=== PATIENT | male | born 1940 | race Caucasian/White ===

== ENCOUNTER → 2018-04-30 | Outpatient (REF) | LOC: M LAB REF 09:50 | DX: Z00.00 Encounter for general adult medical examination without abnormal findings (principal) ==

== ENCOUNTER → 2019-04-05 | Outpatient (CLI) | payer MEDICARE ==
[~2019-04-05] MED LIST: CARA1TAB6 PO; FERR325T3 PO; HYDR12.55 PO; K-TA10TA2 PO; LOSA100T50 PO; MIDAZOLAM INJ 2 MG/2 ML VIAL (J2250) As Ordered ONE; NAPR-885 PO; PROT1TAB2 PO; ZYLO300T6 PO; diphenhydrAMINE INJ 50MG/ML VIAL (J1200) As Ordered ONE; fentaNYL 100 MCG/2 ML INJECTION (J3010) As Ordered ONE
[2019-04-05 14:52] VITALS: BP 139/80
--- NOTE | 2019-05-10 08:39 | REPIR ---
DATE OF PROCEDURE: 04/05/2019 ATTENDING SURGEON: Dr. Magno Brennan ASSISTANTS: Fadia Parkinson and Ariana Edmond PREOPERATIVE DIAGNOSES: Right hip hematoma, inferior vena cava filter placement with a select filter. POSTPROCEDURE DIAGNOSES: Right hip hematoma, inferior vena cava filter placement with a select filter. PROCEDURE: Ultrasound-guided right internal jugular vein cannulation, fluoroscopic guided inferior vena cava catheter placement with venogram, inferior vena cava filter removal. INDICATION: The patient is a 79-year-old male who underwent placement of a select retrievable inferior vena cava filter during his hospitalization at [facility] when he was noted to have a right hip hematoma and was not a candidate for anticoagulation. The patient will now undergo removal of the select filter. Risks, benefits and alternative options were discussed with the patient. ANESTHESIA: Local with 10 mL of 2% lidocaine mixed of 0.5% Marcaine. FLUORO TIME: 1.3 minutes. CONTRAST: 6 mL of Isovue-300. COMPLICATIONS: None. DRAINS: None. SPECIMENS: None. IMPLANTS: None. PROCEDURE: The patient was taken to the angiography suite, placed supine on the angiography room table and the right neck was prepped and draped in a standard surgical fashion. Ultrasound was used to guide cannulation of the right internal jugular vein. A catheter was then placed through the inferior vena cava below the level of the filter and a venogram was performed. The filter was then retrieved using a snare and coaxial system. Completion venogram showed the vena cava to be widely patent with no extravasation or thrombus noted. The sheath was removed and manual compression applied at the right internal jugular vein puncture site for hemostasis. Dressings were then applied. The patient tolerated the procedure well. All instrument, sponge and needle counts were correct at the end the case. There were no complications. Dr. Brennan was present for and directed the entire case. The patient was transferred to the holding area and subsequently discharged in stable condition
== END ==
LOC: M IRPRO 13:22
PROVIDERS: ATTEND Surgery Vascular Surgery
DX: Z45.89 Encounter for adjustment and management of other implanted devices (principal); Z87.828 Personal history of other (healed) physical injury and trauma
CPT/HCPCS: 37193; C1769; C1894; J1200; J2250; J3010